=== PATIENT | female | born 2000 ===

== ENCOUNTER → 2025-05-03 07:33 | Outpatient (REF) | payer BC, SELFPAY | LOC: DHSLP 07:33 | PROVIDERS: ATTENDING PHYSICIAN Student in an Organized Health Care Education/Training Program; FAMILY PHYSICIAN Nurse Practitioner Family | DX: G47.00 Insomnia, unspecified (principal) | CPT/HCPCS: 95810 ==

== ENCOUNTER → 2025-05-04 07:08 | Outpatient (REF) | payer BC, SELFPAY | LOC: DHSLP 07:08 | PROVIDERS: ATTENDING PHYSICIAN Student in an Organized Health Care Education/Training Program; FAMILY PHYSICIAN Nurse Practitioner Family | DX: G47.11 Idiopathic hypersomnia with long sleep time (principal) | CPT/HCPCS: 95805 ==